=== PATIENT | male | born 2000 | race Hispanic/Latino ===

== ENCOUNTER → 2024-12-22 08:38 | Outpatient (CLI) | payer OTHER, SELFPAY ==
--- NOTE | 2024-12-22 08:41 | DI.MG.S_ITS ---
MM diagnostic mammo BI, US breast RT limited: 12/22/2024 BI-RADS: 2 CLINICAL: 24-year old male for bilateral diagnostic mammogram and right diagnostic breast ultrasound. No personal or first-degree family history of breast cancer. The patient reports a palpable abnormality (more than 2 years) in the right breast. PRIOR EXAMS No prior examinations available. MAMMOGRAPHY TECHNIQUE: 2D and 3D (tomosynthesis) digital mammographic views obtained, with additional images as needed for full coverage. Current study was also evaluated with a Computer Aided Detection (CAD) system. ULTRASOUND TECHNIQUE Real-time vidal scale and color doppler imaging of the area of clinical interest was performed with image documentation. TARGETED Right Breast Ultrasound: Real-time ultrasound exam was performed focused to area of clinical and/or imaging concern. DENSITY B. There are scattered areas of fibroglandular density. MAMMOGRAPHY FINDINGS Right (finding-1): Central, Retroareolar, Far Anterior depth: Underlying surface marker and correlating with palpable lump there is an asymmetry consistent with gynecomastia. This is compatible with a pattern of moderate dendritic gynecomastia. Left: No suspicious mass, asymmetry, microcalcification, or other abnormality seen. ULTRASOUND FINDINGS Right (finding-1): Upper at 12:00, Retroareolar: Underlying a surface marker and correlating with palpable lump and also with findings on mammogram there is retroareolar fibroglandular tissue consistent with gynecomastia. IMPRESSION: Right * No evidence of malignancy with benign findings. Left * No evidence of malignancy. RECOMMENDATIONS Right * Clinical follow-up is recommended for the patient's gynecomastia, with evaluation for etiologies including medication and or drug-related factors, hormonal or systemic disorders. Further management of palpable abnormalities or other focal signs or symptoms should be based on the results of clinical evaluation. If palpable abnormality or other concerning symptom persists or progresses, further clinical evaluation should be considered. COMMENTS: Findings and recommendations were conveyed to the patient during today's evaluation. OVERALL ASSESSMENT CATEGORY BI-RADS-2: Benign. ELECTRONICALLY SIGNED: Bárbara Sutherland M.D. on 12/22/2024 at 10:36:23 AM PT Interpreting Station ID: [id number]
== END ==
DX: N62 Hypertrophy of breast (principal)
CPT/HCPCS: 76642; 77066; G0279

== ENCOUNTER → 2025-03-11 06:43 | Outpatient (CLI) | payer OTHER, SELFPAY ==
--- NOTE | 2025-03-11 06:44 | DI.US.S_ITS ---
PROCEDURE: US ABDOMEN LIMITED INDICATIONS: elevated hepatic enzymes TECHNIQUE: Real-time scanning was performed of the abdominal and retroperitoneal organs, with image documentation. COMPARISON: None. FINDINGS: Liver: Liver is normal in size and homogeneous in echotexture. Gallbladder: Multiple nonshadowing echogenic foci measuring up to 4 mm dependent and non dependent aspects of the gallbladder suspected numerous gallbladder polyps. No gross ultrasound evidence of shadowing gallstones. No gallbladder wall thickening or pericholecystic fluid. Sonographic Doyle sign is noted as negative. Biliary ducts: Intrahepatic bile ducts are non-dilated. Extrahepatic bile duct caliber measures 4 mm. Normal is 6-7 mm or less in diameter, or 10 mm or less post-cholecystectomy. Pancreas: Visualized portions of the pancreas are sonographically normal. IMPRESSION: Gallbladder polyps. No gallstones. Otherwise negative. If symptoms persist or worsen, or there is high clinical suspicion of abdominal abnormality, CT could be performed. Dictated by: Jordy Lainez M.D. on 03/11/2025 at 12:00 Approved by: Jordy Lainez M.D. on 03/11/2025 at 12:01
== END ==
LOC: US 06:43
DX: K82.4 Cholesterolosis of gallbladder (principal); R74.8 Abnormal levels of other serum enzymes
CPT/HCPCS: 76705